=== PATIENT | female | born 1970 | race Caucasian/White ===

== ENCOUNTER 2019-07-07 15:14 | Emergency (ER) | payer MEDICAID ==
[~2019-07-07] VITALS: Ht 160 cm; Wt 100.0 kg
[2019-07-07 21:40] VITALS: BP 125/95
== END 2019-07-07 21:41 | disposition home or self-care (01) ==
LOC: EMS 15:14
DX: F10.129 Alcohol abuse with intoxication, unspecified (principal); Z98.890 Other specified postprocedural states

== ENCOUNTER 2019-07-11 10:02 | Emergency (ER) | payer MEDICAID ==
[~2019-07-11] VITALS: Ht 160 cm; Wt 84.1 kg
[2019-07-11] MEDS ORDERED: ATOR40TA28 PO (10:33)
[2019-07-11] MEDS ORDERED: GABA-533 PO (10:33)
[2019-07-11] MEDS ORDERED: VENL-68 PO (10:33)
[2019-07-11] MEDS ORDERED: EZET10TA13 PO (10:33)
[2019-07-11] MEDS ORDERED: ONDANSETRON HCL 4 MG/2 ML VIAL IVP ONE (11:45)
[2019-07-11] MEDS ORDERED: SODIUM CHLORIDE 0.9% 1,000 ML IV ONE (11:45)
[2019-07-11 11:48] LABS: BASOPHILS % (AUTO) 0.7 % (0.0-2.0); EOSINOPHILS % (AUTO) 1.9 % (1.0-6.0); HEMATOCRIT 33.9 % (36-46); HEMOGLOBIN 11.4 g/dL (12.0-16.0); LYMPHOCYTES # (AUTO) 0.6 K/uL (1.0-4.8); LYMPHOCYTES % (AUTO) 15.7 % (22.0-44.0); MEAN CORPUSCULAR HEMOGLOBIN 34.6 pg (26.0-34.0); MEAN CORPUSCULAR HGB CONC 33.5 G/dL (31.0-37.0); MEAN CORPUSCULAR VOLUME 103 fL (80-100); MONOCYTES # (AUTO) 0.3 K/uL (0.1-1.0); MONOCYTES % (AUTO) 9.3 % (2.0-9.0); NEUTROPHILS # (AUTO) 2.6 K/uL (1.8-7.7); NEUTROPHILS % (AUTO) 72.4 % (40.0-70.0); PLATELET COUNT (AUTO) 91 K/uL (150-450); RED BLOOD CELL COUNT(AUTO) 3.28 MIL/uL (4.00-5.20); RED CELL DISTRIBUTION WIDTH 25.4 % (11.5-14.5)
[2019-07-11 11:56] LABS: ANION GAP 11 mmol/L (8-16); CALCIUM, TOTAL 6.9 mg/dL (8.8-10.5); CARBON DIOXIDE 26 mmol/L (22-29); CHLORIDE 104 mmol/L (98-107); CREATININE 0.99 mg/dL (0.60-1.30); GLOMERULAR FILTR. RATE CALC 60 mL/min (>60); GLUCOSE,RANDOM 112 mg/dL (70-110); POTASSIUM 3.8 mmol/L (3.5-5.1); SODIUM SERUM 141 mmol/L (136-145); UREA NITROGEN, BLOOD 4 mg/dL (7-18)
[2019-07-11] MEDS ORDERED: LORazepam 2 MG/ML VIAL IVP ONE ×2 (12:00→13:45)
[2019-07-11 12:11] LABS: ALANINE AMINOTRANSFERASE 124 U/L (12-78); ALBUMIN 2.7 g/dL (3.4-5.0); ALKALINE PHOSPHATASE 155 U/L (46-116); ASPARTATE AMINOTRANSFERASE 182 U/L (15-37); BILIRUBIN,TOTAL 0.5 mg/dL (0.1-1.0); HCG,QUANTITATIVE < 1 mIU/mL (0-6); LIPASE 53 U/L (73-393)
[2019-07-11] MEDS ORDERED: ChlordiazePOXIDE HCL 25 MG CAPSULE PO ONE (12:15)
[2019-07-11] MEDS ORDERED: CALCIUM GLUCONATE 1,000 MG in DEXTROSE 5%-WATER 50 ML IV ONE (13:45)
[2019-07-11 14:32] VITALS: BP 127/81
== END 2019-07-11 15:31 | disposition home or self-care (01) ==
LOC: EMS 10:03
DX: F10.239 Alcohol dependence with withdrawal, unspecified (principal); R11.2 Nausea with vomiting, unspecified; Z85.3 Personal history of malignant neoplasm of breast; Z79.899 Other long term (current) drug therapy; Z88.5 Allergy status to narcotic agent; Z98.890 Other specified postprocedural states
CPT/HCPCS: 36415; 80053; 83690; 84702; 85025; 96361; 96365; 96375; 96376; 99284; J0610; J2060; J2405; J7030; J7060